=== PATIENT | female | born 1965 | race Two or more races ===

== ENCOUNTER 2019-02-24 05:03 | Emergency (ER) | payer OTHER ==
[2019-02-24 06:29] LABS: URINE PH (Dip) POC 5.5 (5.0-8.5)
[2019-02-24 06:29] LABS: URINE BLOOD (Dip) POC 2+ (NEGATIVE); URINE GLUCOSE (Dip) POC Negative (NEGATIVE); URINE KETONES (Dip) POC Negative (NEGATIVE); URINE LEUKOCYTE EST (Dip) POC Negative (NEGATIVE); URINE NITRITE (Dip) POC Negative (NEGATIVE); URINE TOTAL PROTEIN POC Negative (NEGATIVE)
== END 2019-02-24 06:50 | disposition home or self-care (01) ==
LOC: FTE 05:03
DX: R30.0 Dysuria (principal)
CPT/HCPCS: 81003; 81025; 87086; 99283